=== PATIENT | female | born 1965 | race Caucasian/White ===

== ENCOUNTER 2018-09-09 10:17 | Emergency (ER) | payer BC ==
[2018-09-09] MEDS ORDERED: Ketorolac 30 MG/ML SDV IM ONE (11:24)
[2018-09-09] MEDS ORDERED: Methocarbamol 500 MG Tab PO ONE (11:24)
--- NOTE | 2018-09-09 11:59 | CR ---
[id number] RAD/RAD Chest PA And Lateral EXAM: RAD Chest PA And Lateral INDICATION: COUGH. COMPARISON: None. DISCUSSION: Cardiomediastinal silhouette is normal in size and contour. No infiltrate, effusion, pneumothorax, or edema. Mild degenerative changes of the thoracic spine. IMPRESSION: No acute cardiopulmonary abnormality. Kaz Lockhart DO 09/09/18 1158 Thank you for allowing us to participate in the care of your patient.
--- NOTE | 2018-09-09 12:01 | CR ---
[id number] RAD/RAD Thoracic Spine 2V EXAM: AP AND LATERAL THORACIC SPINE. INDICATION: Upper back pain. COMPARISON: No previous similar exam is available for comparison. FINDINGS: No definite compression deformity is identified. No fracture or subluxation is seen. Mild multilevel degenerative changes of the thoracic spine. The pedicles are intact. IMPRESSION: NO DEFINITE ACUTE COMPRESSION DEFORMITY OF THE THORACIC SPINE IS IDENTIFIED. Kaz Lockhart DO 09/09/18 1200 Thank you for allowing us to participate in the care of your patient.
[2018-09-09] MEDS ORDERED: Ketorolac 10 MG Tab ONE (12:39)
[2018-09-09] MEDS ORDERED: Ketorolac 10 MG Tab PO ONE (12:39)
[2018-09-09] MEDS ORDERED: Cyclobenzaprine 10 MG Tab PO ONE (12:40)
[2018-09-09] MEDS ORDERED: Cyclobenzaprine 10 MG Tab ONE (12:40)
[2018-09-09 12:46] LABS: ANION GAP 8.6 mmol/L (5-15); CHLORIDE,CL 106 mmol/L (98-115); SODIUM,NA 138 mmol/L (136-145)
--- NOTE | 2018-09-09 14:52 | EDM.PDOC ---
ED HPI GENERAL MEDICAL PROBLEM - General Chief Complaint: Respiratory Problem Stated Complaint: COLD, COUGH SYMPTOMS Time Seen by Provider: 09/09/18 10:45 Source of Information: Reports: Patient, Family () History Limitations: Reports: No Limitations - History of Present Illness INITIAL COMMENTS - FREE TEXT/NARRATIVE: 53-year-old female presents to the emergency room with complaints mainly of a chronic productive cough and right upper back pain between her shoulder blades. Patient states that she is had an upper respiratory infection going on since this April. She's been treated with the Z-Elan and the decongestants. She seems to have gotten better throughout at times but has a recurrence of her symptoms. She notices some posterior nasal drainage and a productive cough. 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 She reports the pain is worse with taking a deep breath and coughing. She denies shortness of breath. She has no chest pain. She denies any current fever or chills. She denies significant sinus pressure or tenderness. No current headache. She denies any ear pain or fullness. Onset: Gradual Duration: Week(s):, Getting Worse Location: Reports: Back Quality: Reports: Sharp Severity: Moderate Improves with: Reports: None Worsens with: Reports: Breathing, Other (coughing worst) Associated Symptoms: Reports: No Other Symptoms, Cough, cough w sputum. Denies : Chest Pain, Diaphoresis, Fever/Chills, Headaches, Nausea/Vomiting, Shortness of Breath Treatments IRONER: Reports: NSAIDS Right Lower Back Pain Score (Numeric/FACES): 6 - Related Data Allergies Allergy/AdvReac Type Severity Reaction Status Date / Time morphine Allergy Vomiting Verified 09/09/18 11:47 propoxyphene napsylate Allergy Nausea Verified 09/09/18 11:47 [From Darvocet-N] Home Meds: Home Meds Levothyroxine Sodium [Levoxyl] 50 mcg PO DAILY 09/09/18 [History] Past Medical History HEENT History: Reports: None Gastrointestinal History: Reports: Colon Polyp, Helicobacter Pylori, Irritable Bowel Syndrome Genitourinary History: Reports: None 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: Ectopic , Endocrine/Metabolic History: Reports: Obesity/BMI 30+ - Infectious Disease History Infectious Disease History: Reports: None - Past Surgical History HEENT Surgical History: Reports: LASIK GI Surgical History: Reports: Appendectomy, Colonoscopy, EGD Female Surgical History: Reports: Breast Biopsy, Section, D&C, Hysterectomy Endocrine Surgical History: Reports: None Social & Family History - Tobacco Use Smoking Status *Q: Current Every Day Smoker Years of Tobacco use: 15 Packs/Tins Daily: 1 - Caffeine Use Caffeine Use: Reports: Coffee - Alcohol Use Days Per Week of Alcohol Use: 4 Number of Drinks Per Day: 2 Total Drinks Per Week: 8 - Recreational Drug Use Recreational Drug Use: No ED ROS GENERAL - Review of Systems Review Of Systems: See Below Constitutional: Denies: Fever, Chills HEENT: Reports: Rhinitis. Denies: Dental Pain, Hearing Loss, Throat Pain, Throat Swelling, Vertigo Respiratory: Reports: Pleuritic Chest Pain, Cough, Sputum. Denies: Shortness of Breath, Wheezing, Hemoptysis Cardiovascular: Denies: Chest Pain, Blood Pressure Problem, Dyspnea on Exertion , Edema, Lightheadedness, Orthopnea, Palpitations Endocrine: Reports: No Symptoms GI/Abdominal: Denies: Abdominal Pain, Constipation, Diarrhea, Nausea, Vomiting : Reports: No Symptoms Musculoskeletal: Reports: Back Pain (upper back right side) Skin: Reports: No Symptoms Psychiatric: Reports: No Symptoms Hematologic/Lymphatic: Reports: No Symptoms Immunologic: Reports: No Symptoms ED EXAM, GENERAL - Physical Exam Exam: See Below Exam Limited By: No Limitations General Appearance: Alert, WD/WN, No Apparent Distress Eye Exam: Bilateral Eye: EOMI, PERRL Ears: Normal External Exam, Normal Canal, Hearing Grossly Normal Ear Exam: Bilateral Ear: Other (Impaction bilaterally is obscuring view of the TMs) Nose: Normal Inspection, Normal Mucosa, No Blood. No: Nasal Drainage Throat/Mouth: Normal Inspection, Normal Lips, Normal Teeth, Normal Gums, Normal Oropharynx, Normal Voice, No Airway Compromise Head: Atraumatic, Normocephalic Neck: Normal Inspection, Supple, Non-Tender, Full Range of Motion. No: Lymphadenopathy (L), Lymphadenopathy (R) Respiratory/Chest: No Respiratory Distress, Lungs Clear, Normal Breath Sounds, No Accessory Muscle Use, Chest Non-Tender Cardiovascular: Normal Peripheral Pulses, Regular Rate, Rhythm GI/Abdominal: Soft, Non-Tender Back Exam: Normal Inspection, Full Range of Motion, Paraspinal Tenderness ( Right side of the paraspinals upper back between the right scapula). No: CVA Tenderness (L), CVA Tenderness (R) Extremities: Normal Inspection, Normal Range of Motion, Non-Tender, No Pedal Edema, Normal Capillary Refill Neurological: Alert, Oriented, Normal Cognition, Normal Gait, No Motor/Sensory Deficits Psychiatric: Normal Affect, Normal Mood Skin Exam: Warm, Dry, Intact, Normal Color, No Rash Lymphatic: No Adenopathy Course - Vital Signs Last Recorded V/S: Last Vital Signs Temp 98.5 F 09/09/18 10:28 Pulse 61 09/09/18 11:56 Resp 20 09/09/18 10:28 BP 182/95 H 09/09/18 11:56 Pulse Ox 96 09/09/18 10:28 - Orders/Labs/Meds Labs: Laboratory Tests 09/09/18 09/09/18 Range/Units 12:20 12:20 WBC 7.68 (5.00-10.00) 10^3/uL RBC 4.60 (3.80-5.50) 10^6/uL Hgb 14.9 (12.0-16.0) g/dL Hct 43.3 (37.0-47.0) % MCV 94.1 H (82.0-92.0) fL MCH 32.4 H (27.0-31.0) pg MCHC 34.4 (32.0-36.0) g/dL RDW 13.3 (11.5-14.5) % Plt Count 180 (150-400) 10^3/uL MPV 9.4 (7.4-10.4) fL Immature Gran % (Auto) 0.1 (0.0-5.0) % Neut % (Auto) 67.3 (50.0-70.0) % Lymph % (Auto) 25.0 (20.0-40.0) % [place] % (Auto) 5.2 (2.0-8.0) % Eos % (Auto) 2.1 (1.0-3.0) % Baso % (Auto) 0.3 (0.0-1.0) % Immature Gran # (Auto) 0.01 (0.00-0.50) 10^3/uL Neut # (Auto) 5.17 (2.50-7.00) 10^3/uL Lymph # (Auto) 1.92 (1.00-4.00) 10^3/uL [place] # (Auto) 0.40 (0.10-0.80) 10^3/uL Eos # (Auto) 0.16 (0.10-0.30) 10^3/uL Baso # (Auto) 0.02 (0.00-0.10) 10^3/uL Sodium 138 (136-145) mmol/L Potassium 4.4 (3.3-5.3) mmol/L Chloride 106 (98-115) mmol/L Carbon Dioxide 27.8 (21.0-32.0) mmol/L Anion Gap 8.6 (5-15) mmol/L BUN 15 (6-25) mg/dL Creatinine 0.52 (0.51-1.17) mg/dL Est Cr Clr Drug Dosing 111.29 mL/min Estimated GFR (MDRD) > 60 mL/min Glucose 95 (75 - 99) mg/dL Calcium 8.8 (8.7-10.3) mg/dL Meds: Medications Discontinued Medications Generic Name Dose Route Start Last Admin Trade Name Jaimeq PRN Reason Stop Dose Admin Cyclobenzaprine HCl Confirm 09/09/18 12:40 Flexeril Administered 09/09/18 12:41 Dose 20 mg .ROUTE .STK-MED ONE Ketorolac Tromethamine 30 mg 09/09/18 11:24 09/09/18 11:46 Toradol IM 09/09/18 11:25 30 mg ONETIME ONE Administration Ketorolac Tromethamine Confirm 09/09/18 12:39 Toradol Administered 09/09/18 12:40 Dose 30 mg .ROUTE .STK-MED ONE Methocarbamol 1,000 mg 09/09/18 11:24 09/09/18 11:46 Robaxin PO 09/09/18 11:25 1,000 mg ONETIME ONE Administration - Radiology Interpretation Free Text/Narrative:: X-rays AP lateral thoracic spine Findings: -No definite compression deformity is identified. No fracture or subluxation is seen. Mild multilevel degenerative changes of thoracic spine. Impression: -No definite acute compression deformity of thoracic spine is identified X-ray chest PA and lateral Impression: -No acute cardiopulmonary abnormality. Departure - Departure Time of Disposition: 12:45 Disposition: Home, Self-Care 01 Condition: Good Clinical Impression: Bronchitis, Upper back pain on right side, Tobacco abuse counseling - Discharge Information Instructions: Acute Bronchitis, Adult, [id number] Referrals: Marques Higuera PA-C [Primary Care Provider] - Forms: ED Department Discharge - Assessment/Plan Assessment:: 1. Right upper back pain likely due to chronic coughing 2. Bronchitis 3. Tobacco dependence Plan: 1. Medrol Dosepak over the next 7 days. 2. Flexeril 10 mg 1 by mouth 3 times a day #30 dispensed 3. Toradol 10 mg 1 by mouth every 8 hours when necessary #15 dispensed 4. Patient may try a [id number] decongestant. 5. Encouraged to drink plenty of water 6. Smoking sensation was discussed with the patient today
== END 2018-09-09 12:45 | disposition home or self-care (01) ==
LOC: KA.ED 10:17
DX: J40 Bronchitis, not specified as acute or chronic (principal); M54.6 Pain in thoracic spine; F17.210 Nicotine dependence, cigarettes, uncomplicated; Z88.5 Allergy status to narcotic agent; Z88.8 Allergy status to other drugs, medicaments and biological substances; Z79.899 Other long term (current) drug therapy
CPT/HCPCS: 36415; 71046; 72070; 80048; 85025; 96372; 99283-25; A9270-GY; J1885